=== PATIENT | male | born 1970 | race Caucasian/White ===

== ENCOUNTER 2018-12-05 18:25 | Emergency (ER) | payer BC, SELFPAY ==
[2018-12-05 18:26] VITALS: BP 169/94; PULSE 85; RESP 14; TEMP 36.6; O2SAT 100; BMI 35.1
[2018-12-05 18:30] VITALS: BP 150/95; PULSE 83; RESP 14; O2SAT 100
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
[2018-12-05] MEDS: Ibuprofen 400 MG Tablet 800 MG PO (19:38)
[2018-12-05 19:46] VITALS: BP 148/75; PULSE 81; RESP 18; O2SAT 100
--- OUTSIDE RECORDS SUMMARY | 2019-02-09 12:37 | XMS RPT_ITS ---
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 gotten strep a lot in the past and this does not feel like strep. He states that since it had been going on so long and no other symptoms, he thought he should rule it out. He has not taken anything OTC. He denies fever, chills, rash, GI upset, other URI symptoms. PAST MEDICAL HISTORY Diagnosis Date - NEGATIVE MEDICAL HISTORY ALLERGIES Penicillins MEDICATIONS Current Outpatient Prescriptions: meloxicam (MOBIC) 15 mg tablet Take 1 tablet by mouth once daily. No current facility-administered medications for this visit. Medications and allergies reviewed by this provider. SOCIAL HISTORY Social History Marital status: Spouse name: Years of education: Number of children: Occupational History Occupation Employer Comment [employer] Social History Main Topics Smoking status: Never Smoker Smokeless tobacco: Never Used Alcohol use: No Drug use: No Sexual activity: Yes Partners with: Female REVIEW OF SYSTEMS see HPI OBJECTIVE: BP 132/84 Pulse 93 Resp 20 Wt 101.2 kg (223 lb) SpO2 97% BMI 32.93 kg/m? . Vital signs reviewed by this provider. PHYSICAL EXAMINATION: General appearance: Well appearing, alert, in no acute distress, well-hydrated, well nourished. Skin: Skin color, texture, turgor normal, no suspicious rashes or lesions Head: Normocephalic, no masses, lesions, tenderness or abnormalities Eyes: Anicteric sclera. Pupils are equally round and reactive to light. Ears: External ears normal, canals clear, left TM with scaring, no other concerns, Right TM normal Nose/Sinuses: Nares normal, septum midline, mucosa normal, no drainage or sinus tenderness Oropharynx: Positive findings: mild oropharyngeal erythema Neck: Positive findings: submaxillary adenopathy Lungs: lungs clear to auscultation. No wheezing, rhonchi, rales Heart: RRR without murmur, gallop, or rubs. No ectopy ASSESSMENT/PLAN: 1. Sore throat - ICD9: 462, ICD10: J02.9 - suspect viral - Rapid Strep negative in the office today and Throat culture pending - Discussed supportive care treatment with fluids, rest and analgesia. - The patient may also use warm salt water gargles, throat lozenges and/or OTC throat spray as needed. - Contagious dz precautions discussed- including considered contagious until on antibiotics for 24 hours - The patient should follow up in 3-5 days if symptoms persist or worsen - Call back if drooling, increased temperature, symptoms of dehydration and/or still sick in one week - RAPID STREP TEST B/O - THROAT CULTURE Dominguez Burton APRN.REPACKER CNOV Observed: 10/30/2018 Status: COMPLETED Source: [place] 12:40 PM [facility] REPOSITORY Office Visit (FAMPWS) KYMTRAVIS ([id number]) 1970 M Date Time Provider Department 10/30/18 12:40 PM DOMINGUEZ BURTON ([facility]) FAMPWS During your visit today, we recorded the following information about you: Pulse Respiration Blood pressure Weight 93/minute 20/minute 132/84 101.2 kg Dominguez Burton APRN.CNP 10/30/2018 1:20 PM Signed 10/30/2018 Patient presents with: Sore Throat SUBJECTIVE: This is a 48 year old that is here today for sore throat for the last 5 days. He states that he has gotten strep a lot in the past and this does not feel like strep. He states that since it had been going on so long and no other symptoms, he thought he should rule it out. He has not taken anything OTC. He denies fever, chills, rash, GI upset, other URI symptoms. PAST MEDICAL HISTORY Diagnosis Date - NEGATIVE MEDICAL HISTORY ALLERGIES Penicillins MEDICATIONS Current Outpatient Prescriptions: meloxicam (MOBIC) 15 mg tablet Take 1 tablet by mouth once daily. No current facility-administered medications for this visit. Medications and allergies reviewed by this provider. SOCIAL HISTORY Social History Marital status: Spouse name: Years of education: Number of children: Occupational History Occupation Employer Comment [employer] Social History Main Topics Smoking status: Never Smoker Smokeless tobacco: Never Used Alcohol use: No Drug use: No Sexual activity: Yes Partners with: Female REVIEW OF SYSTEMS see HPI OBJECTIVE: BP 132/84 Pulse 93 Resp 20 Wt 101.2 kg (223 lb) SpO2 97% BMI 32.93 kg/m? . Vital signs reviewed by this provider. PHYSICAL EXAMINATION: General appearance: Well appearing, alert, in no acute distress, well-hydrated, well nourished. Skin: Skin color, texture, turgor normal, no suspicious rashes or lesions Head: Normocephalic, no masses, lesions, tenderness or abnormalities Eyes: Anicteric sclera. Pupils are equally round and reactive to light. Ears: External ears normal, canals clear, left TM with scaring, no other concerns, Right TM normal Nose/Sinuses: Nares normal, septum midline, mucosa normal, no drainage or sinus tenderness Oropharynx: Positive findings: mild oropharyngeal erythema Neck: Positive findings: submaxillary adenopathy Lungs: lungs clear to auscultation. No wheezing, rhonchi, rales Heart: RRR without murmur, gallop, or rubs. No ectopy ASSESSMENT/PLAN: 1. Sore throat - ICD9: 462, ICD10: J02.9 - suspect viral - Rapid Strep negative in the office today and Throat culture pending - Discussed supportive care treatment with fluids, rest and analgesia. - The patient may also use warm salt water gargles, throat lozenges and/or OTC throat spray as needed. - Contagious dz precautions discussed- including considered contagious until on antibiotics for 24 hours - The patient should follow up in 3-5 days if symptoms persist or worsen - Call back if drooling, increased temperature, symptoms of dehydration and/or still sick in one week - RAPID STREP TEST B/O - THROAT CULTURE Dominguez Burton APRN.REPACKER Referring Provider: SELF [200] Allergies As of Date: 10/30/2018 Noted Allergy Reaction PENICILLINS 07/16/2006 Date Reviewed: 10/30/2018 Reviewed by: Felisha (Kade) KADE Robles - Fully Assessed Reason for Visit: Sore Throat [200] Primary Visit Diagnosis:Sore throat [J02.9] Order(s):RAPID STREP TEST B/O [6197775] Order #: [id number] THROAT CULTURE [SQTHRCUL] Order #: [id number] Prescriptions as of 10/30/2018 Sig: MELOXICAM 15 MG TABLET Take 1 tablet by mouth once d* Problem List As Of Date 10/30/2018 Noted Resolved LUMBAGO [M54.5] INVALID FOR* Sterilization [Z30.2] INVALID FOR* Obesity (BMI 30-39.9) [E66.9] INVALID FOR* More... Encounter Status:Closed by DOMINGUEZ BURTON on 10/30/18 Observed: 09/06/2018 Status: F Source: [place] URINE CULTURE 2:07 PM [facility] REPOSITORY Sp. Request/Comment: - Specimen received in preservative Culture Result - No growth (<1,000 CFU/ml) Performed By: #### URCUL #### [facility] [address] [place], [place] [address] PROGRESS Observed: 09/06/2018 Status: COMPLETED Source: [place] 12:39 PM [facility] REPOSITORY HNO ID: [id number] Author: Jerad (Harness And Bag Inspector) Service: (none) Author Type: Nurse Practitioner Type: Progress Notes Filed: 09/06/2018 1:40 PM Note Text: Subjective HPI HPI Travis Mejía is a 48 year old male who presents today for CC of Groin pain, may have mild urinary urgency and intermittent urinary burning at times. This started 5 days ago. Has tried nothing for relief. Symptoms are worsened by nothing. Risk factors none. Denies concern for STD. .Patient presents with: Groin Pain PAST MEDICAL HISTORY Diagnosis Date - NEGATIVE MEDICAL HISTORY PAST SURGICAL HISTORY Procedure Laterality Date - KNEE SCOPE,DIAGNOSTIC Arthroscopy, knee, right - VASECTOMY 07/22/10 ALLERGIES Penicillins MEDICATIONS meloxicam (MOBIC) 15 mg tablet Take 1 tablet by mouth once daily. FAMILY HISTORY Problem Relation Age of Onset - Breast Cancer Maternal Grandmother - Diabetes Maternal Grandfather Social History Substance Use Topics - Smoking status: Never Smoker - Smokeless tobacco: Never Used - Alcohol use No Review of Systems Constitutional: Negative for chills, fever and weight loss. Respiratory: Negative for cough, shortness of breath and wheezing. Cardiovascular: Negative for chest pain and palpitations. Gastrointestinal: Negative for abdominal pain, blood in stool, constipation, diarrhea, heartburn, melena, nausea and vomiting. Genitourinary: Positive for dysuria (mild) and urgency (mild). Negative for flank pain, frequency and hematuria. Objective Blood pressure 130/80, pulse 82, temperature 36.6 ?C (97.9 ?F), temperature source Left Tympanic, resp. rate 16, weight 98 kg (216 lb), SpO2 97 %. Physical Exam Constitutional: He is well-developed, well-nourished, and in no distress. Non-toxic appearance. He does not have a sickly appearance. No distress. Cardiovascular: Normal rate, regular rhythm and normal heart sounds. Pulmonary/Chest: Effort normal and breath sounds normal. Abdominal: Soft. Normal appearance and bowel sounds are normal. There is no hepatosplenomegaly. There is no tenderness. There is no CVA tenderness. Genitourinary: Penis normal. He exhibits testicular tenderness (left, posterior). He exhibits no abnormal testicular mass, no abnormal scrotal mass and no scrotal tenderness. Genitourinary Comments: No mass or tenderness in left groin No density abnormality noted on testicular exam. No hernia noted bilaterally Skin: Skin is warm and dry. ASSESSMENT/PLAN: 1. Testicular pain, left - ICD9: 608.9, ICD10: N50.812 (primary diagnosis) -discussed options with patient -patient declined u/s Antibiotic as ordered Will schedule follow up with primary care -follow up sooner if symptoms worsen. - URINE CULTURE - DOXYCYCLINE MONOHYDRATE 100 MG TABLET 2. Dysuria - ICD9: 788.1, ICD10: R30.0 Acute -UA negative for UTI - Send urine for culture - Patient education for prevention given - UA DIP, URINE (POC) Prescription instructions reviewed with patient as applicable. Patient advised if symptoms do not improve or if symptoms worsen sooner, to contact the office for further evaluation by their primary care physician. Potential red flag symptoms discussed with the patient. Reviewed appropriate action plan to take if red flag symptoms occur. Patient agreeable to treatment plan. Jerad Schaefer APRN.[place]ETTA CNOV Observed: 09/06/2018 Status: COMPLETED Source: [place] 12:30 PM [facility] REPOSITORY Office Visit (UCWSTR) TRAVIS MEJÍA ([id number]) 1970 M Date Time Provider Department 09/06/18 12:30 PM JERAD SCHAEFER ([place]) WSTR During your visit today, we recorded the following information about you: Temperature Pulse Respiration Blood pressure 97.9 degrees 82/minute 16/minute 130/80 Weight 98 kg Jerad Schaefer APRN.REPACKER 09/06/2018 1:40 PM Signed Subjective HPI HPI Travis Mejía is a 48 year old male who presents today for CC of Groin pain, may have mild urinary urgency and intermittent urinary burning at times. This started 5 days ago. Has tried nothing for relief. Symptoms are worsened by nothing. Risk factors none. Denies concern for STD. .Patient presents with: Groin Pain PAST MEDICAL HISTORY Diagnosis Date - NEGATIVE MEDICAL HISTORY PAST SURGICAL HISTORY Procedure Laterality Date - KNEE SCOPE,DIAGNOSTIC Arthroscopy, knee, right - VASECTOMY 07/22/10 ALLERGIES Penicillins MEDICATIONS meloxicam (MOBIC) 15 mg tablet Take 1 tablet by mouth once daily. FAMILY HISTORY Problem Relation Age of Onset - Breast Cancer Maternal Grandmother - Diabetes Maternal Grandfather Social History Substance Use Topics - Smoking status: Never Smoker - Smokeless tobacco: Never Used - Alcohol use No Review of Systems Constitutional: Negative for chills, fever and weight loss. Respiratory: Negative for cough, shortness of breath and wheezing. Cardiovascular: Negative for chest pain and palpitations. Gastrointestinal: Negative for abdominal pain, blood in stool, constipation, diarrhea, heartburn, melena, nausea and vomiting. Genitourinary: Positive for dysuria (mild) and urgency (mild). Negative for flank pain, frequency and hematuria. Objective Blood pressure 130/80, pulse 82, temperature 36.6 ?C (97.9 ?F), temperature source Left Tympanic, resp. rate 16, weight 98 kg (216 lb), SpO2 97 %. Physical Exam Constitutional: He is well-developed, well-nourished, and in no distress. Non-toxic appearance. He does not have a sickly appearance. No distress. Cardiovascular: Normal rate, regular rhythm and normal heart sounds. Pulmonary/Chest: Effort normal and breath sounds normal. Abdominal: Soft. Normal appearance and bowel sounds are normal. There is no hepatosplenomegaly. There is no tenderness. There is no CVA tenderness. Genitourinary: Penis normal. He exhibits testicular tenderness (left, posterior). He exhibits no abnormal testicular mass, no abnormal scrotal mass and no scrotal tenderness. Genitourinary Comments: No mass or tenderness in left groin No density abnormality noted on testicular exam. No hernia noted bilaterally Skin: Skin is warm and dry. ASSESSMENT/PLAN: 1. Testicular pain, left - ICD9: 608.9, ICD10: N50.812 (primary diagnosis) -discussed options with patient -patient declined u/s Antibiotic as ordered Will schedule follow up with primary care -follow up sooner if symptoms worsen. - URINE CULTURE - DOXYCYCLINE MONOHYDRATE 100 MG TABLET 2. Dysuria - ICD9: 788.1, ICD10: R30.0 Acute -UA negative for UTI - Send urine for culture - Patient education for prevention given - UA DIP, URINE (POC) Prescription instructions reviewed with patient as applicable. Patient advised if symptoms do not improve or if symptoms worsen sooner, to contact the office for further evaluation by their primary care physician. Potential red flag symptoms discussed with the patient. Reviewed appropriate action plan to take if red flag symptoms occur. Patient agreeable to treatment plan. Jerad Schaefer APRN.LORETTA Schaefer APRN.CNP 09/06/2018 1:05 PM Signed ASSESSMENT/PLAN: 1. Testicular pain, left - ICD9: 608.9, ICD10: N50.812 (primary diagnosis) Antibiotic as ordered Will schedule follow up with primary care -follow up sooner if symptoms worsen. - URINE CULTURE - DOXYCYCLINE MONOHYDRATE 100 MG TABLET 2. Dysuria - ICD9: 788.1, ICD10: R30.0 Acute -UA negative for UTI - Send urine for culture - Patient education for prevention given - UA DIP, URINE (POC) Referring Provider: SELF [200] Allergies As of Date: 09/06/2018 Noted Allergy Reaction PENICILLINS 07/16/2006 Date Reviewed: 09/06/2018 Reviewed by: Jerad Schaefer - Fully Assessed Reason for Visit: Groin Pain [1378] Primary Visit Diagnosis:Testicular pain, left [N50.812] Other Visit Diagnosis:Dysuria [R30.0] Order(s):UA DIP, URINE (POC) [[id number]] Order #: [id number]. #:[id number] URINE CULTURE [SQURCUL] Order #: [id number] doxycycline monohydrate 100 mg tabletTake 1 tablet by mouth twice daily for 10 days.Disp: 20 tabletRfl: 0 Prescriptions as of 09/06/2018 Sig: MELOXICAM 15 MG TABLET Take 1 tablet by mouth once d* DOXYCYCLINE MONOHYDRATE 100 M* Take 1 tablet by mouth twice * Problem List As Of Date 09/06/2018 Noted Resolved LUMBAGO [M54.5] INVALID FOR* Sterilization [Z30.2] INVALID FOR* Obesity (BMI 30-39.9) [E66.9] INVALID FOR* More... Other instructions from your clinician: ASSESSMENT/PLAN: 1. Testicular pain, left - ICD9: 608.9, ICD10: N50.812 (primary diagnosis) Antibiotic as ordered Will schedule follow up with primary care -follow up sooner if symptoms worsen. - URINE CULTURE - DOXYCYCLINE MONOHYDRATE 100 MG TABLET 2. Dysuria - ICD9: 788.1, ICD10: R30.0 Acute -UA negative for UTI - Send urine for culture - Patient education for prevention given - UA DIP, URINE (POC) Prescriptions ordered this encounter Disp Refills Start End DOXYCYCLINE MONOHYDRATE 100 MG TABLET 20 t* 0 09/06/2018 09/16/2018 Route: ORAL Sig: Take 1 tablet by mouth twice daily for 10 days. Encounter Status:Closed by JERAD SCHAEFER CNP on 09/06/18 PROGRESS Observed: 04/01/2018 Status: COMPLETED Source: [place] 2:39 PM [facility] [place] REPOSITORY [facility] ID: [id number] Author: Geno Sanchez (Bandar) Service: (none) Author Type: Physician Jet Blade Polisher Type: Progress Notes Filed: 04/01/2018 3:08 PM Note Text: Geno Sanchez PA-C Department of Orthopaedics Orthopaedics [address] [place] [id number] Dept: [phone] Dept April 01, 2018 CHIEF COMPLAINT: right knee injury HPI: Mr. Travis Mejía is a 47 year old male. He presents with right knee pain following an injury on 03/21/18. Patient [place] he slipped landing on his knee with his leg bent behind him. He has has swelling and stiffness of his knee since the injury. Pain is worse with climbing or pivoting. 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 Patient has been wrapping knee with matthew wrap and taking intermittent Advil. He had a remote right knee arthroscopy and reports having and ACL repair. ASSESSMENT: M25.461 Knee effusion, right (primary encounter diagnosis) M25.561 Acute pain of right knee PLAN: We will start him on meloxicam, he was advised to continue to use compression and should be icing and elevating for at least 30 minutes twice per day. Encouraged to work on gentle stretching. Patient was offered corticosteroid injection but declines at this time. Follow up as needed. FOLLOW UP INSTRUCTIONS: As needed. Mr. Travis Mejía was advised as to contrast therapies and/or to take analgesics/anti-inflammatories as needed and all contraindications were reviewed. OBJECTIVE: Mr. Travis Mejía is a pleasant 47 year old in no apparent distress. Gen:BP 130/76 Pulse 64 Ht 5' 9 (1.75m) Wt 207 lb (93.9kg) BMI 30.55 kg/(m2). nl development, non obese, no deformities ENT: Normocephalic, normal hearing, moist mucosa CV: Pulses:DP/PT= 2+ and symmetric, capillary refill < 2 secs, no peripheral edema/varicosities Skin: no rash, bruising or lesions. Good turgor. Psych: cooperative and appropriate, alert and oriented x 3, good mood and affect. Musculoskeletal: KNEE EXAM: Right: Alignment: Neutral Range of motion is lacking a few degrees secondary to tight hamstrings degrees in extension and 110 degrees of flexion. Extension Lag: < 10 degrees Pain with ROM: Yes and + McMurrary's Effusion: Mild Tender to the palpation of Posterior Knee, Lateral femoral condyle and Lateral joint line Pain with patellar compression: No Stability: Anterior/Posterior stable and Varus/Valgus stable Hip Exam: flexion to 100+ degrees, full extension, internal/external rotation adequate and no pain with log roll Neurovascular Status: Sensation Intact, Moves foot and ankle up AND down and 2+ dorsalis pedis IMAGING: IMPRESSION: DEGENERATIVE JOINT DISEASE WITH SMALL JOINT EFFUSION AND INTRA-ARTICULAR BODY. ?NO ACUTE BONY ABNORMALITY. Gas Jockey: PSCB ? Transcribe Date/Time: March 11:48A Dictated by : TOMAS KEANE MD This examination was interpreted and the report reviewed and electronically signed by: TOMAS KEANE MD on March 11:50AM ?EST Results-Findings * * *Final Report* * * DATE OF EXAM: March 11:36AM ? WOX ? [id number] ?- ?XR KNEE 2V AP/LAT RT ?/ PROCEDURE REASON: Unspecified injury of right lower leg, initial encounter ?? ? * * * * Physician Interpretation * * * * ?HISTORY: 47-YEAR-OLD MALE WITH ? Unspecified injury of right lower leg, initial encounter ? . ?Pt fell down a hill yesterday. Posterior right knee pain and swelling. TECHNIQUE: XR KNEE 2V AP/LAT RT ?? Laterality: ?RIGHT ?? Number of different views (projections): 2 COMPARISON: None RESULT: ?Knee joint is maintained with osteophytes about knee joint. ? There osteophytes of the patellofemoral joint which appears be mildly narrowed on lateral view. ?Small joint effusion is present. ?8 mm intra-articular body at the posterior joint line. ?Enthesophyte on the patella tendon insertion quadriceps tendon. ?No acute fracture however there is a mild deformity of the medial tibial plateau which may relate to previous injury. Supporting Subjective Information Below: Past Medical History: PAST MEDICAL HISTORY Diagnosis Date - NEGATIVE MEDICAL HISTORY Past Surgical History: PAST SURGICAL HISTORY Procedure Laterality Date - KNEE SCOPE,DIAGNOSTIC Arthroscopy, knee, right - VASECTOMY 07/22/10 Family History: FAMILY HISTORY Problem Relation Age of Onset - Breast Cancer Maternal Grandmother - Diabetes Maternal Grandfather Social History:Social History Marital status: Spouse name: Years of education: Number of children: Occupational History Occupation Employer Comment [employer] Social History Main Topics Smoking status: Never Smoker Smokeless tobacco: Never Used Alcohol use: No Drug use: No Sexual activity: Yes Partners with: Female Medications: Current Outpatient Prescriptions: meloxicam (MOBIC) 15 mg tablet Take 1 tablet by mouth once daily. No current facility-administered medications for this visit. Allergies: Penicillins ROS: General (negative for fatigue, malaise, weight loss/gain) HEENT (negative for headache, earache, recent vision changes, sinus pain, sore throat) Respiratory (no recent shortness of breath, hemoptysis) CV (negative for chest tightness, palpitations) Musculoskeletal (see HPI) Psych (no depression, anxiety) REFERRING PHYSICIAN: Mr. Travis Mejía was referred to me for consultation by the following physician. This consultation note will be sent to the following physician by either mail or electronic medical record. Nina Coronel APRN.REPACKER [address] [facility] [id number] SHAHNAZ HUIZAR MD [address] [facility] [address] This note was partially generated using Talkray voice recognition system, and there may be some incorrect words, spellings, and punctuation that were not noted in checking the note before saving. Geno Sanchez PA-C CNOV Observed: 04/01/2018 Status: COMPLETED Source: [place] 2:10 PM [facility] REPOSITORY Office Visit (ORTHWS) TRAVIS MEJÍA ([id number]) 1970 M Date Time Provider Department 04/01/18 2:10 PM GENO SANCHEZ ([place]) During your visit today, we recorded the following information about you: Pulse Blood pressure Weight Height 64/minute 130/76 93.9 kg 1.753 m Soraida Mcgee LPN 04/01/2018 1:59 PM Signed Patient had right knee injury and xrays done in 03/22/18. Patient states fell on a hill. Pain is off and on but persistant. Geno Sanchez) 04/01/2018 3:08 PM Signed Geno Sanchez PA-C Department of Orthopaedics Orthopaedics [address] [facility] [address] Dept: [phone] Dept April 01, 2018 CHIEF COMPLAINT: right knee injury HPI: Mr. Travis Mejía is a 47 year old male. He presents with right knee pain following an injury on 03/21/18. Patient was [place] when he slipped landing on his knee with his leg bent behind him. He has has swelling and stiffness of his knee since the injury. Pain is worse with climbing or pivoting. 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 Patient has been wrapping knee with matthew wrap and taking intermittent Advil. He had a remote right knee arthroscopy and reports having and ACL repair. ASSESSMENT: M25.461 Knee effusion, right (primary encounter diagnosis) M25.561 Acute pain of right knee PLAN: We will start him on meloxicam, he was advised to continue to use compression and should be icing and elevating for at least 30 minutes twice per day. Encouraged to work on gentle stretching. Patient was offered corticosteroid injection but declines at this time. Follow up as needed. FOLLOW UP INSTRUCTIONS: As needed. Mr. Travis Mejía was advised as to contrast therapies and/or to take analgesics/anti-inflammatories as needed and all contraindications were reviewed. OBJECTIVE: Mr. Travis Mejía is a pleasant 47 year old in no apparent distress. Gen:BP 130/76 Pulse 64 Ht 5' 9 (1.75m) Wt 207 lb (93.9kg) BMI 30.55 kg/(m2). nl development, non obese, no deformities ENT: Normocephalic, normal hearing, moist mucosa CV: Pulses:DP/PT= 2+ and symmetric, capillary refill < 2 secs, no peripheral edema/varicosities Skin: no rash, bruising or lesions. Good turgor. Psych: cooperative and appropriate, alert and oriented x 3, good mood and affect. Musculoskeletal: KNEE EXAM: Right: Alignment: Neutral Range of motion is lacking a few degrees secondary to tight hamstrings degrees in extension and 110 degrees of flexion. Extension Lag: < 10 degrees Pain with ROM: Yes and + McMurrary's Effusion: Mild Tender to the palpation of Posterior Knee, Lateral femoral condyle and Lateral joint line Pain with patellar compression: No Stability: Anterior/Posterior stable and Varus/Valgus stable Hip Exam: flexion to 100+ degrees, full extension, internal/external rotation adequate and no pain with log roll Neurovascular Status: Sensation Intact, Moves foot and ankle up AND down and 2+ dorsalis pedis IMAGING: IMPRESSION: DEGENERATIVE JOINT DISEASE WITH SMALL JOINT EFFUSION AND INTRA-ARTICULAR BODY. ?NO ACUTE BONY ABNORMALITY. Gas Jockey: ALLEN ? Transcribe Date/Time: March 11:48A Dictated by : TOMAS KEANE MD This examination was interpreted and the report reviewed and electronically signed by: TOMAS KEANE MD on March 11:50AM ?EST Results-Findings * * *Final Report* * * DATE OF EXAM: March 11:36AM ? WOX ? [id number] ?- ?XR KNEE 2V AP/LAT RT ?/ PROCEDURE REASON: Unspecified injury of right lower leg, initial encounter ?? ? * * * * Physician Interpretation * * * * ?HISTORY: 47-YEAR-OLD MALE WITH ? Unspecified injury of right lower leg, initial encounter ? . ?Pt fell down a hill yesterday. Posterior right knee pain and swelling. TECHNIQUE: XR KNEE 2V AP/LAT RT ?? Laterality: ?RIGHT ?? Number of different views (projections): 2 COMPARISON: None RESULT: ?Knee joint is maintained with osteophytes about knee joint. ? There osteophytes of the patellofemoral joint which appears be mildly narrowed on lateral view. ?Small joint effusion is present. ?8 mm intra-articular body at the posterior joint line. ?Enthesophyte on the patella tendon insertion quadriceps tendon. ?No acute fracture however there is a mild deformity of the medial tibial plateau which may relate to previous injury. Supporting Subjective Information Below: Past Medical History: PAST MEDICAL HISTORY Diagnosis Date - NEGATIVE MEDICAL HISTORY Past Surgical History: PAST SURGICAL HISTORY Procedure Laterality Date - KNEE SCOPE,DIAGNOSTIC Arthroscopy, knee, right - VASECTOMY 07/22/10 Family History: FAMILY HISTORY Problem Relation Age of Onset - Breast Cancer Maternal Grandmother - Diabetes Maternal Grandfather Social History:Social History Marital status: Spouse name: Years of education: Number of children: Occupational History Occupation Employer [employer] Social History Main Topics Smoking status: Never Smoker Smokeless tobacco: Never Used Alcohol use: No Drug use: No Sexual activity: Yes Partners with: Female Medications: Current Outpatient Prescriptions: meloxicam (MOBIC) 15 mg tablet Take 1 tablet by mouth once daily. No current facility-administered medications for this visit. Allergies: Penicillins ROS: General (negative for fatigue, malaise, weight loss/gain) HEENT (negative for headache, earache, recent vision changes, sinus pain, sore throat) Respiratory (no recent shortness of breath, hemoptysis) CV (negative for chest tightness, palpitations) Musculoskeletal (see HPI) Psych (no depression, anxiety) REFERRING PHYSICIAN: Mr. Travis Mejía was referred to me for consultation by the following physician. This consultation note will be sent to the following physician by either mail or electronic medical record. Nina Coronel APRN.REPACKER [address] [facility] [address] SHAHNAZ HUIZAR MD [address] [facility] [address] This note was partially generated using Talkray voice recognition system, and there may be some incorrect words, spellings, and punctuation that were not noted in checking the note before saving. Geno Sanchez PA-C Referring Provider: NINA CORONEL ([facility]) [[id number]] Allergies As of Date: 04/01/2018 Noted Allergy Reaction PENICILLINS 07/16/2006 Date Reviewed: 04/01/2018 Reviewed by: Geno Sanchez ([facility]) - Fully Assessed Reason for Visit: right knee injury [Other] Primary Visit Diagnosis:Knee effusion, right [M25.461] Other Visit Diagnosis:Acute pain of right knee [M25.561] Order(s):meloxicam (MOBIC) 15 mg tabletTake 1 tablet by mouth once daily.Disp: 30 tabletRfl: 1 Prescriptions as of 04/01/2018 Sig: MELOXICAM 15 MG TABLET Take 1 tablet by mouth once d* Problem List As Of Date 04/01/2018 Noted Resolved LUMBAGO [M54.5] INVALID FOR* Sterilization [Z30.2] INVALID FOR* Obesity (BMI 30-39.9) [E66.9] INVALID FOR* More... Visit Notes: >> Soraida Mcgee SEEMA Mon April 01, 2018 1:59 PM Status: Signed Patient had right knee injury and xrays done in 03/22/18. Patient states fell on a hill. Pain is off and on but persistant. Prescriptions ordered this encounter Disp Refills Start End MELOXICAM 15 MG TABLET 30 t* 1 04/01/2018 Route: ORAL Sig: Take 1 tablet by mouth once daily. Encounter Status:Closed by GENO SANCHEZ PA-C on 04/01/18 XR KNEE 2V AP/LAT Observed: 03/22/2018 Status: F Source: [place] RT 11:36 AM [facility] RE[facility] * * *Final Report* * * DATE OF EXAM: Mar 22 2018 11:36AM WOX [id number] - XR KNEE 2V AP/LAT RT / PROCEDURE REASON: Unspecified injury of right lower leg, initial encounter * * * * Physician Interpretation * * * * HISTORY: 47-YEAR-OLD MALE WITH Unspecified injury of right lower leg, initial encounter . Pt fell down a hill yesterday. Posterior right knee pain and swelling. TECHNIQUE: XR KNEE 2V AP/LAT RT Laterality: RIGHT Number of different views (projections): 2 COMPARISON: None RESULT: Knee joint is maintained with osteophytes about knee joint. There osteophytes of the patellofemoral joint which appears be mildly narrowed on lateral view. Small joint effusion is present. 8 mm intra-articular body at the posterior joint line. Enthesophyte on the patella tendon insertion quadriceps tendon. No acute fracture however there is a mild deformity of the medial tibial plateau which may relate to previous injury. IMPRESSION: DEGENERATIVE JOINT DISEASE WITH SMALL JOINT EFFUSION AND INTRA-ARTICULAR BODY. NO ACUTE BONY ABNORMALITY. Gas Jockey: PSCB Transcribe Date/Time: Mar 22 2018 11:48A Dictated by : TOMAS KEANE MD This examination was interpreted and the report reviewed and electronically signed by: TOMAS KEANE MD on Mar 22 2018 11:50AM EST [id number] PROGRESS Observed: 03/22/2018 Status: COMPLETED Source: [place] 11:26 AM [facility] REPOSITORY HNO ID: [id number] Author: Yamile Turcios (Rt)Italo Service: (none) Author Type: Gate Attendant Type: Progress Notes Filed: 03/22/2018 11:35 AM Note Text: Radiology Service Progress Note PATIENT NAME: Travis Mejía DATE OF SERVICE: March 22, 2018 TIME: 11:26 AM PATIENT IDENTITY VERIFICATION COMPLETED USING TWO (2) METHODS: Patient confirmed name verbally and Date of . PATIENT GENDER DATA: Male PATIENT RELEVANT IMPLANT DATA REVIEWED: Not Applicable RADIOLOGY DEPARTMENT: General X-ray: Exam(s) Completed: Lower Extremity X-Ray(s): Knee, AP / LAT Right and Wt. Bearing: PERIPHERAL IV DATA: Not applicable SIGNED BY: RT Liseth March 22, 2018 11:26 AM PROGRESS Observed: 03/22/2018 Status: COMPLETED Source: [place] 11:17 AM [facility] REPOSITORY HNO ID: [id number] Author: Nina Coronel ([facility]) Service: (none) Author Type: Nurse Practitioner Type: Progress Notes Filed: 03/22/2018 12:07 PM Note Text: Subjective HPI Travis Mejía is a 47 year old male who presents with a painful right knee, he slid and fell on a muddy hill last night and his right leg bent under him. It is swollen. He took advil last night. He rates the pain a 5/10 and is worse with walking. Review of Systems Constitutional: Negative. Negative for fever. Musculoskeletal: Positive for falls and joint pain. Skin: Negative. BP 142/82 Pulse 78 Temp 36.9 ?C (98.5 ?F) (Tympanic) Resp 16 Wt 91 kg (200 lb 9.6 oz) BMI 30.73 kg/m? PAST MEDICAL HISTORY Diagnosis Date - NEGATIVE MEDICAL HISTORY PAST SURGICAL HISTORY Procedure Laterality Date - KNEE SCOPE,DIAGNOSTIC Arthroscopy, knee, right - VASECTOMY 07/22/10 ALLERGIES Penicillins MEDICATIONS No prescriptions on file. FAMILY HISTORY Problem Relation Age of Onset - Diabetes Maternal Grandfather - Breast Cancer Maternal Grandmother Social History Substance Use Topics - Smoking status: Never Smoker - Smokeless tobacco: Never Used - Alcohol use No Objective Physical Exam Constitutional: He is well-developed, well-nourished, and in no distress. Musculoskeletal: Right knee: He exhibits decreased range of motion and swelling. He exhibits no effusion, no ecchymosis, no deformity, no erythema, normal alignment, no LCL laxity, normal patellar mobility, no bony tenderness, normal meniscus and no MCL laxity. Tenderness found. Lateral joint line tenderness noted. No medial joint line and no patellar tendon tenderness noted. Knee is stable on exam. Skin: Skin is warm and dry. No erythema. Nursing note and vitals reviewed. ASSESSMENT/PLAN: 1. Right knee injury, initial encounter - ICD9: 959.7, ICD10: S89.91XA - suspect sprain - XR KNEE LIMITED 2V AP/LAT RT. My reading: degenerative changes present, nothing acute. Radiologist IMPRESSION: DEGENERATIVE JOINT DISEASE WITH SMALL JOINT EFFUSION AND INTRA-ARTICULAR BODY. ?NO ACUTE BONY ABNORMALITY. Dictated by : TOMAS KEANE MD - CONSULT TO ORTHOPAEDICS- patient to schedule - Matthew wrap applied. - RICE therapy - Ibuprofen as directed. - printed educational materials provided to patient. - Follow-up with your PCP in 3-5 days if symptoms have not improved or sooner if symptoms worsen - Discussed red flags and need for immediate medical evaluation if any occur. - Discussed supportive care treatment with fluids, rest and analgesia. - Discussed expected course of illness Nina Coronel APRN.[place] CNOV Observed: 03/22/2018 Status: COMPLETED Source: [place] 11:15 AM [facility] REPOSITORY Office Visit ([facility]) TRAVIS MEJÍA ([id number]) 1970 M Date Time Provider Department 03/22/18 11:15 AM NINA CORONEL ([place]) [facility] During your visit today, we recorded the following information about you: Temperature Pulse Respiration Blood pressure 98.5 degrees 78/minute 16/minute 142/82 Weight 91 kg Nina Coronel ([place]) 03/22/2018 12:07 PM Signed Subjective HPI Travis Mejía is a 47 year old male who presents with a painful right knee, he slid and fell on a muddy hill last night and his right leg bent under him. It is swollen. He took advil last night. He rates the pain a 5/10 and is worse with walking. Review of Systems Constitutional: Negative. Negative for fever. Musculoskeletal: Positive for falls and joint pain. Skin: Negative. BP 142/82 Pulse 78 Temp 36.9 ?C (98.5 ?F) (Tympanic) Resp 16 Wt 91 kg (200 lb 9.6 oz) BMI 30.73 kg/m? PAST MEDICAL HISTORY Diagnosis Date - NEGATIVE MEDICAL HISTORY PAST SURGICAL HISTORY Procedure Laterality Date - KNEE SCOPE,DIAGNOSTIC Arthroscopy, knee, right - VASECTOMY 07/22/10 ALLERGIES Penicillins MEDICATIONS No prescriptions on file. FAMILY HISTORY Problem Relation Age of Onset - Diabetes Maternal Grandfather - Breast Cancer Maternal Grandmother Social History Substance Use Topics - Smoking status: Never Smoker - Smokeless tobacco: Never Used - Alcohol use No Objective Physical Exam Constitutional: He is well-developed, well-nourished, and in no distress. Musculoskeletal: Right knee: He exhibits decreased range of motion and swelling. He exhibits no effusion, no ecchymosis, no deformity, no erythema, normal alignment, no LCL laxity, normal patellar mobility, no bony tenderness, normal meniscus and no MCL laxity. Tenderness found. Lateral joint line tenderness noted. No medial joint line and no patellar tendon tenderness noted. Knee is stable on exam. Skin: Skin is warm and dry. No erythema. Nursing note and vitals reviewed. ASSESSMENT/PLAN: 1. Right knee injury, initial encounter - ICD9: 959.7, ICD10: S89.91XA - suspect sprain - XR KNEE LIMITED 2V AP/LAT RT. My reading: degenerative changes present, nothing acute. Radiologist IMPRESSION: DEGENERATIVE JOINT DISEASE WITH SMALL JOINT EFFUSION AND INTRA-ARTICULAR BODY. ?NO ACUTE BONY ABNORMALITY. Dictated by : TOMAS KEANE MD - CONSULT TO ORTHOPAEDICS- patient to schedule - Matthew wrap applied. - RICE therapy - Ibuprofen as directed. - printed educational materials provided to patient. - Follow-up with your PCP in 3-5 days if symptoms have not improved or sooner if symptoms worsen - Discussed red flags and need for immediate medical evaluation if any occur. - Discussed supportive care treatment with fluids, rest and analgesia. - Discussed expected course of illness Nina Coronel APRN.[facility] Nina Coronel ([facility]) 03/22/2018 12:03 PM Signed Wear matthew wrap until seen by orthopedics. Use your cane for additional support if needed. Recommend ibuprofen 600 mg three times daily with food. Call [phone] to schedule appointment with orthopedic doctor. R.I.C.E. The general care of your injury includes the following: Resting, Icing, Compressing and Elevating the injured area. Remember this as RICE. ? REST: Limit the use of the injured body part. ? ICE: By applying ice to the affected area, swelling and pain can be reduced. Place some ice cubes in a re-sealable (Ziploc) bag and add some water. Put a thin washcloth between the bag and your skin. Apply the ice bag to the area for at least 20 minutes. Do this at least 4 times per day. Using the ice for longer times and more frequently is OK. NEVER APPLY ICE DIRECTLY TO THE SKIN. ? COMPRESS: Compression means to apply pressure around the injured area such as with a splint, cast or an matthew bandage. Compression decreases swelling and improves comfort. Compression should be tight enough to relieve swelling but not so tight as to decrease circulation. Increasing pain, numbness, tingling, or change in skin color, are all signs of decreased circulation. ? ELEVATE: Elevate the injured part. For example, elevate your foot by placing it on a chair while sitting, or propping it up on pillows when lying down. Referring Provider: SELF [[id number]] Allergies As of Date: 03/22/2018 Noted Allergy Reaction PENICILLINS 07/16/2006 Date Reviewed: 03/22/2018 Reviewed by: Nina Coronel ([facility]) - Fully Assessed Reason for Visit: Right Knee Pain [1209] Cmt: injured it last night walking down a muddy hill Primary Visit Diagnosis:Right knee injury, initial encounter [S89.91XA] Order(s):XR KNEE LIMITED 2V AP/LAT RT [6777861] Order #: [id number] FUTURE CONSULT TO ORTHOPAEDICS [9026] Order #: [id number]: 1 Problem List As Of Date 03/22/2018 Noted Resolved LUMBAGO [M54.5] INVALID FOR* Sterilization [Z30.2] INVALID FOR* Obesity (BMI 30-39.9) [E66.9] INVALID FOR* More... Other instructions from your clinician: Wear matthew wrap until seen by orthopedics. Use your cane for additional support if needed. Recommend ibuprofen 600 mg three times daily with food. Call [phone] to schedule appointment with orthopedic doctor. R.I.C.E. The general care of your injury includes the following: Resting, Icing, Compressing and Elevating the injured area. Remember this as RICE. ? REST: Limit the use of the injured body part. ? ICE: By applying ice to the affected area, swelling and pain can be reduced. Place some ice cubes in a re-sealable (Ziploc) bag and add some water. Put a thin washcloth between the bag and your skin. Apply the ice bag to the area for at least 20 minutes. Do this at least 4 times per day. Using the ice for longer times and more frequently is OK. NEVER APPLY ICE DIRECTLY TO THE SKIN. ? COMPRESS: Compression means to apply pressure around the injured area such as with a splint, cast or an matthew bandage. Compression decreases swelling and improves comfort. Compression should be tight enough to relieve swelling but not so tight as to decrease circulation. Increasing pain, numbness, tingling, or change in skin color, are all signs of decreased circulation. ? ELEVATE: Elevate the injured part. For example, elevate your foot by placing it on a chair while sitting, or propping it up on pillows when lying down. Encounter Status:Closed by NINA CORONEL on 03/22/18 ALLERGIES ALLERGIES DATE TYPE / CODE NAME / CODE REACTION SEVERITY SOURCE 12/05/2018 Miscellaneous pcn Unknown Unknown Len Allergy/[id number]( [facility] SNOMED CT) Hospital Repository 07/16/2006 Drug PENICILLINS Britt Class/[id number]([facility] OMED [facility]) [place] Repository ENCOUNTERS ENCOUNTERS ADMIT/DISCHARGE ACCOUNT ADMITTING ENCOUNTER LOCATION SOURCE NUMBER CLASS 12/13/2018/12/13/[id number] Repository 12/09/2018/12/09/19 [id number] Ambulatory [address] Repository 12/05/2018/12/05/19 [id number] Emergency [address] ing:ED Repository 10/30/2018/10/31/20 [id number] Ambulatory [address] Repository 09/06/2018/09/06/20 [id number] Ambulatory [address] Repository 04/01/2018/04/03/20 [id number] Ambulatory [address] Repository 03/22/2018/03/22/20 [id number] Ambulatory [address] Repository 03/22/2018/03/25/[id number] Repository PAYERS PAYERS ENCOUNTER GUARANTOR PAYER SUBSCRIBER SOURCE 12/05/2018 MARQUIS [id number] Insurance:ANTHEMPolic SOURAVB: [facility] CLOLASHELL y [place]: [id number] [id number] Repository [address]Qhj: [phone] tracie Date:[id number] [phone] () [address], [place] [address]OQ: 12/05/2018 Secondary NOT GIVENUNK Len Insurance:SELF PAY [facility] Number: Effective Repository Date:2018-12-05
== END 2018-12-05 19:46 | disposition home or self-care (01) ==
PROVIDERS: Emergency Provider Emergency Medicine; Family Provider Internal Medicine; PCP Internal Medicine
DX: S29.012A Strain of muscle and tendon of back wall of thorax, initial encounter (principal); V89.2XXA Person injured in unspecified motor-vehicle accident, traffic, initial encounter; Y93.9 Activity, unspecified; Y92.410 Unspecified street and highway as the place of occurrence of the external cause; Y99.9 Unspecified external cause status
CPT/HCPCS: 72072; 99284

== ENCOUNTER 2022-08-25 17:23 | Emergency (ER) | payer SELFPAY ==
[2022-08-25 17:25] VITALS: BP 196/101; PULSE 83; RESP 16; TEMP 36.8; O2SAT 97; BMI 32.5
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
[2022-08-25] MEDS: Morphine 4 MG/ML Syringe IM (18:20)
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
[2022-08-25 19:42] VITALS: BP 146/86; PULSE 74; RESP 18; TEMP 36.4; O2SAT 97
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
[2022-08-25] MEDS: Ibuprofen 600 MG Tablet PO (20:13)
== END 2022-08-25 20:22 | disposition home or self-care (01) ==
PROVIDERS: Emergency Provider Emergency Medicine; PCP Internal Medicine; Visit Provider Emergency Medicine
DX: S16.1XXA Strain of muscle, fascia and tendon at neck level, initial encounter (principal); V48.5XXA Car driver injured in noncollision transport accident in traffic accident, initial encounter; M54.6 Pain in thoracic spine; M62.838 Other muscle spasm; Z79.899 Other long term (current) drug therapy
CPT/HCPCS: 71101; 72125; 99284